=== PATIENT | male | born 1940 ===

== ENCOUNTER → 2024-11-22 | Outpatient (CLI) | payer MEDICARE, SELFPAY | END | disposition home or self-care (01) | PROVIDERS: PCP Urology; Referring Provider Urology; Visit Provider Student in an Organized Health Care Education/Training Program | DX: N30.80 Other cystitis without hematuria (principal); Y84.2 Radiological procedure and radiotherapy as the cause of abnormal reaction of the patient, or of later complication, without mention of misadventure at the time of the procedure; D64.9 Anemia, unspecified; C61 Malignant neoplasm of prostate; G62.9 Polyneuropathy, unspecified | CPT/HCPCS: 99213; G0463 ==